=== PATIENT | male | born 1980 ===

== ENCOUNTER 2019-08-16 17:10 | Emergency (ER) | payer BC ==
[2019-08-16] MEDS ORDERED: Midazolam 1 MG/ML 2 ML SDV IVPUSH ONE (17:21)
[2019-08-16] MEDS ORDERED: Sodium Chloride 0.9% 10 ML Syringe FLUSH PRN (17:21)
--- NOTE | 2019-08-16 17:33 | EDM.PDOC ---
ED HPI GENERAL MEDICAL PROBLEM - General Chief Complaint: Behavioral/Psych Stated Complaint: [facility] Time Seen by Provider: 08/16/19 17:15 Source of Information: Reports: Patient, EMS, RN Notes Reviewed - History of Present Illness INITIAL COMMENTS - FREE TEXT/NARRATIVE: 39 year old male has been been brought to ED by EMS after onset of chest pain a short time ago followed by dizziness, numbness and tingling of his hands and arms. Hyperventilating upon arrival to ED. does not smoke, denies any recent drug usage. Chest Pain Score (Numeric/FACES): 4 - Related Data Allergies Allergy/AdvReac Type Severity Reaction Status Date / Time No Known Allergies Allergy Verified 08/16/19 17:21 Home Meds: Home Meds Zolpidem Tartrate [Ambien] 5 mg PO BEDTIME #10 tablet 08/16/19 [Rx] Past Medical History - Past Surgical History Musculoskeletal Surgical History: Reports: Other (See Below) Other Musculoskeletal Surgeries/Procedures:: hand surgery Social & Family History - Tobacco Use Smoking Status *Q: Never Smoker - Caffeine Use Caffeine Use: Reports: Coffee - Recreational Drug Use Recreational Drug Use: No ED ROS GENERAL - Review of Systems Review Of Systems: See Below Constitutional: Denies: Fever HEENT: Reports: No Symptoms Respiratory: Reports: Shortness of Breath Cardiovascular: Reports: Chest Pain GI/Abdominal: Denies: Abdominal Pain, Vomiting Neurological: Reports: Numbness, Tingling Psychiatric: Reports: Anxiety (severe) ED EXAM, GENERAL - Physical Exam Exam: See Below General Appearance: Anxious, Other (hyperventilating quite markedly on arrival to ED) Eye Exam: Bilateral Eye: PERRL Nose: Normal Inspection Throat/Mouth: Normal Inspection, Normal Oropharynx Head: Atraumatic. No: Facial Swelling Neck: Supple Respiratory/Chest: Lungs Clear, Normal Breath Sounds, Respiratory Distress ( hyperventilating on arrival to ED) Cardiovascular: Tachycardia GI/Abdominal: Non-Tender Extremities: Normal Inspection, Normal Range of Motion. No: Pedal Edema, Leg Pain, Redness Neurological: Alert, Oriented, No Motor/Sensory Deficits Skin Exam: Warm, Dry, Normal Color Course - Vital Signs Last Recorded V/S: Last Vital Signs Temp 98.3 F 08/16/19 17:18 Pulse 100 08/16/19 17:18 Resp 25 H 04/07/20 17:18 BP 167/99 H 08/16/19 17:18 Pulse Ox 100 08/16/19 17:18 - Orders/Labs/Meds Labs: Laboratory Tests 08/16/19 08/16/19 Range/Units 17:13 17:13 WBC 8.46 (4.23-9.07) K/mm3 RBC 5.02 (4.63-6.08) M/mm3 Hgb 16.0 (13.7-17.5) gm/dl Hct 46.4 (40.1-51.0) % MCV 92.4 H (79.0-92.2) fl MCH 31.9 (25.7-32.2) pg MCHC 34.5 (32.2-35.5) g/dl RDW Std Deviation 41.7 (35.1-43.9) fL Plt Count 248 (163-337) K/mm3 MPV 10.0 (9.4-12.3) fl Neut % (Auto) 59.1 (34.0-67.9) % Lymph % (Auto) 28.5 (21.8-53.1) % Vil[place] % (Auto) 9.7 (5.3-12.2) % Eos % (Auto) 2.0 (0.8-7.0) Baso % (Auto) 0.5 (0.1-1.2) % Neut # (Auto) 5.00 (1.78-5.38) K/mm3 Lymph # (Auto) 2.41 (1.32-3.57) K/mm3 [place] # (Auto) 0.82 (0.30-0.82) K/mm3 Eos # (Auto) 0.17 (0.04-0.54) K/mm3 Baso # (Auto) 0.04 (0.01-0.08) K/mm3 Sodium 133 L (136-145) mEq/L Potassium 3.2 L (3.5-5.1) mEq/L Chloride 94 L (98-107) mEq/L Carbon Dioxide 23 (21-32) mEq/L Anion Gap 19.2 H (5-15) BUN 6 L (7-18) mg/dL Creatinine 1.1 (0.7-1.3) mg/dL Est Cr Clr Drug Dosing 94.02 mL/min Estimated GFR (MDRD) > 60 (>60) mL/min BUN/Creatinine Ratio 5.5 L (14-18) Glucose 126 H (74-106) mg/dL Calcium 9.4 (8.5-10.1) mg/dL Total Bilirubin 0.9 (0.2-1.0) mg/dL AST 97 H (15-37) U/L ALT 75 H (16-63) U/L Alkaline Phosphatase 81 (46-116) U/L Total Protein 8.0 (6.4-8.2) g/dl Albumin 4.2 (3.4-5.0) g/dl Globulin 3.8 gm/dL Albumin/Globulin Ratio 1.1 (1-2) Meds: Medications Discontinued Medications Generic Name Dose Route Start Last Admin Trade Name Freq PRN Reason Stop Dose Admin Midazolam HCl 2 mg 08/16/19 17:21 08/16/19 17:25 Versed 1 Mg/Ml IVPUSH 08/16/19 17:22 2 mg ONETIME ONE Administration Sodium Chloride 10 ml 08/16/19 17:21 08/16/19 17:26 Saline Flush FLUSH 10 ml ASDIRECTED PRN Administration Keep Vein Open - Re-Assessments/Exams Free Text/Narrative Re-Assessment/Exam: 08/16/19 18:21. Feeling much better after versed 2 mg IV a short time after arrival to ED. Chest discomfort is gone, paresthesias are resolving. He does not feel short of breath, he has not been recently ill. However is under a lot of work and family stress. He has not been sleeping well recently because of the stress. Taking a lot of melatonin. Departure - Departure Time of Disposition: 19:45 Disposition: Home, Self-Care 01 Condition: Fair Clinical Impression: Atypical chest pain, Panic attack Insomnia Qualifiers: Insomnia type: unspecified Qualified Code(s): G47.00 - Insomnia, unspecified Prescriptions: Zolpidem Tartrate [Ambien] 5 mg PO BEDTIME #10 tablet Instructions: Nonspecific Chest Pain, Adult, Panic Attack, Insomnia Referrals: PCP,None [Primary Care Provider] - Forms: ED Department Discharge Additional Instructions: You have been given sedating medication here in the ED. Do not drive this evening. Ambien 1/2 of 5mg tablet or 5 mg 1 hr prior to bedtime if needed for severe difficulty sleeping. Prescription has been sent to [facility] at the [facility]. Follow up with one of our health care providers for a complete physical, further evaluation and treatment as needed. Call [phone] for appointment. Sepsis Event Note - Evaluation Sepsis Screening Result: No Definite Risk - Focused Exam Date Exam was Performed: 08/18/19 Time Exam was Performed: 13:29
--- NOTE | 2019-08-16 17:48 | CR ---
Chest: Portable view of the chest was obtained. Comparison: No prior chest imaging is available. Heart size and mediastinum are normal. Lungs are clear with no acute parenchymal change. Bony structures are grossly intact. Impression: 1. Nothing acute is appreciated on portable chest x-ray. Diagnostic code #1 Study was dictated in MDT
== END 2019-08-16 18:54 | disposition home or self-care (01) ==
LOC: JD.ED 17:10
DX: F41.0 Panic disorder [episodic paroxysmal anxiety] (principal); G47.00 Insomnia, unspecified
CPT/HCPCS: 36415; 71045; 80053; 85025; 93005; 96374; 99285; J2250; 93010; 99284